=== PATIENT | female | born 1970 | race Caucasian/White ===

== ENCOUNTER 2017-02-07 23:43 | Emergency (ER) | payer OTHER ==
[~2017-02-07] VITALS: Ht 165.1 cm; Wt 61.0 kg
[~2017-02-07 23:43] MED LIST: LEXAPRO10 MG PO; LEXAPRO20 MG PO; LISINOPRIL10 MG PO; LISINOPRIL30 MG PO; LORAZEPAM1 MG PO; MELOXICAM15 MG PO; NAPROSYN500 MG PO; PRILOS; PRILOSEC10 MG PO; PROTONIX40 MG PO; RISPERIDONE0.5 MG PO; TRICOR145 MG PO; VICODIN 5-3001 EACH PO; ZEGERID20 MG PO; ZESTRIL,PRINIVIL5 MG PO
[2017-02-08] MEDS ORDERED: TRAMADOL HCL50 MG PO (02:23)
[2017-02-08 03:11] VITALS: BP 154/88
== END 2017-02-08 03:14 | disposition home or self-care (01) ==
LOC: EME 23:43 → EXP 23:43
DX: M17.0 Bilateral primary osteoarthritis of knee (principal); F17.200 Nicotine dependence, unspecified, uncomplicated
CPT/HCPCS: 99281; 99284

== ENCOUNTER 2017-02-14 07:32 | Observation (INO) | payer OTHER ==
[~2017-02-14] VITALS: Ht 170.2 cm; Wt 60.0 kg
[~2017-02-14 07:32] MED LIST changes: +TRAMADOL HCL50 MG PO
[2017-02-14 08:35] LABS: BASOPHIL COUNT 0.1 K/uL (0-0.1); EOSINOPHIL (%) 1.6 % (0-5); EOSINOPHIL COUNT 0.1 K/uL (0-0.3); HEMATOCRIT 37.8 % (36.0-46.0); IMMATURE GRANULOCYTE (%) 0.5 % (0.0-0.7); INSTRUMENT ABS NEUTROPHIL CT 2.8 K/uL; LYMPHOCYTE COUNT 2.3 K/uL (1.0-2.8); MCV 88.9 FL (83-99); MEAN PLAT.VOLUME 9.2 uM^3 (9.5-12.4); MONOCYTE (%) 8.2 % (3-12); MONOCYTE COUNT 0.5 K/uL (0-0.8); NEUTROPHIL (%) 48.8 % (45-76); NEUTROPHIL COUNT 2.8 K/uL (1.8-6.4); PLATELET COUNT 156 K/uL (156-360); RBC DIS.WIDTH-CV 12.9 % (11.8-14.6); RBC DIS.WIDTH-SD 42.2 % (39-53); RED BLOOD COUNT 4.25 M/uL (3.80-5.20); WHITE BLOOD COUNT 5.7 K/uL (4.1-10.2)
[2017-02-14 08:43] LABS: CHLORIDE 98 mEq/L (99-109); POTASSIUM 3.4 mEq/L (3.7-5.4); SODIUM 133 mEq/L (136-147)
[2017-02-14 08:45] LABS: GLUCOSE 98 mg/dL (70-99)
[2017-02-14 08:46] LABS: ANION GAP 17 MEQ/L (2-14)
[2017-02-14 08:49] LABS: GFR ESTIMATE (CALCULATED) > 59 mL/min/; UREA NITROGEN (BUN) 6 mg/dL (9-23)
[2017-02-14 09:09] LABS: SERUM ETHYL ALCOHOL 237 mg/dL
[2017-02-14 09:20] LABS: TROP-I INTERPRETATION NEGATIVE; TROPONIN-I < 0.01 ng/mL (0.0-0.30)
[2017-02-14] MEDS ORDERED: TRICOR145 MG PO (12:28)
[2017-02-14] MEDS ORDERED: VENTOLIN HFA18 GM IH (12:29)
[2017-02-14] MEDS ORDERED: LISINOPRIL20 MG PO (12:29)
[2017-02-14] MEDS ORDERED: PRILOSEC10 MG PO (12:29)
[2017-02-14] MEDS ORDERED: LEXAPRO20 MG PO (12:29)
[2017-02-14] MEDS ORDERED: TRAMADOL HCL50 MG PO (12:30)
[2017-02-14 17:53] VITALS: BP 156/96
[2017-02-15 00:57] VITALS: BP 161/77
[2017-02-15 07:47] VITALS: BP 134/81
[2017-02-15 11:01] VITALS: BP 164/78
[2017-02-15] MEDS ORDERED: CEFTIN500 MG PO (14:10)
[2017-02-15] MEDS ORDERED: DELTASONE20 M1 PO (14:11)
== END 2017-02-15 14:39 | disposition home or self-care (01) ==
LOC: EME → EDBD 07:32 → EDOF 14:16 → 5EAST 14:16 → EDOF 14:16 → 5EAST 17:22
PROVIDERS: Emergency Medicine
DX: J44.1 Chronic obstructive pulmonary disease with (acute) exacerbation (principal); F17.200 Nicotine dependence, unspecified, uncomplicated; I10 Essential (primary) hypertension; E78.5 Hyperlipidemia, unspecified; F41.9 Anxiety disorder, unspecified; F32.9 Major depressive disorder, single episode, unspecified; Z88.5 Allergy status to narcotic agent; E87.1 Hypo-osmolality and hyponatremia; E87.6 Hypokalemia; F10.220 Alcohol dependence with intoxication, uncomplicated; Y90.7 Blood alcohol level of 200-239 mg/100 ml; K21.9 Gastro-esophageal reflux disease without esophagitis
CPT/HCPCS: 71010; 80048; 84484; 85025; 87070; 87205; 93005; 94640; 94640 76; 94799; 99202; 99281; 99285; G0378; G0480; J0696; J1100; J1650; J2060; J2930; J7030; J7050; J7644

== ENCOUNTER 2017-02-25 05:55 | Emergency (ER) | payer OTHER ==
[~2017-02-25] VITALS: Ht 165.1 cm; Wt 60.1 kg
[~2017-02-25 05:55] MED LIST changes: +CEFTIN500 MG PO; +DELTASONE20 M1 PO; +LISINOPRIL20 MG PO; +VENTOLIN HFA18 GM IH
[2017-02-25 06:21] LABS: EOSINOPHIL (%) 1.2 % (0-5); EOSINOPHIL COUNT 0.1 K/uL (0-0.3); HEMATOCRIT 38.4 % (36.0-46.0); IMMATURE GRANULOCYTE (%) 0.4 % (0.0-0.7); INSTRUMENT ABS NEUTROPHIL CT 2.6 K/uL; LYMPHOCYTE COUNT 3.2 K/uL (1.0-2.8); MCH 31.5 PG (29.0-34.0); MCHC 35.2 G/DL (30.0-36.0); MCV 89.7 FL (83-99); MEAN PLAT.VOLUME 9.2 uM^3 (9.5-12.4); MONOCYTE (%) 13.7 % (3-12); MONOCYTE COUNT 0.9 K/uL (0-0.8); NEUTROPHIL (%) 37.9 % (45-76); NEUTROPHIL COUNT 2.6 K/uL (1.8-6.4); RBC DIS.WIDTH-CV 13.7 % (11.8-14.6); RBC DIS.WIDTH-SD 45.4 % (39-53); RED BLOOD COUNT 4.28 M/uL (3.80-5.20); WHITE BLOOD COUNT 6.9 K/uL (4.1-10.2)
[2017-02-25 06:23] LABS: CHLORIDE 99 mEq/L (99-109); PLATELET COUNT 210 K/uL (156-360); POTASSIUM 3.9 mEq/L (3.7-5.4)
[2017-02-25 06:24] LABS: SODIUM 133 mEq/L (136-147)
[2017-02-25 06:27] LABS: ANION GAP 15 MEQ/L (2-14)
[2017-02-25 06:29] LABS: GFR ESTIMATE (CALCULATED) > 59 mL/min/
[2017-02-25 06:30] LABS: UREA NITROGEN (BUN) 5 mg/dL (9-23)
[2017-02-25 06:36] LABS: TROP-I INTERPRETATION NEGATIVE; TROPONIN-I < 0.01 ng/mL (0.0-0.30)
[2017-02-25] MEDS ORDERED: PROAIR HFA8.5 GM IH (06:48)
[2017-02-25] MEDS ORDERED: XANAX0.25 MG PO (06:48)
[2017-02-25 06:52] VITALS: BP 100/62
[2017-02-25 06:58] LABS: GLUCOSE 82 mg/dL (70-99)
== END 2017-02-25 06:58 | disposition home or self-care (01) ==
LOC: EME → EDBD 05:55 → EME 05:55
PROVIDERS: Emergency Medicine
DX: J44.9 Chronic obstructive pulmonary disease, unspecified (principal); F41.0 Panic disorder [episodic paroxysmal anxiety]; F17.200 Nicotine dependence, unspecified, uncomplicated; I10 Essential (primary) hypertension; E78.5 Hyperlipidemia, unspecified; K21.9 Gastro-esophageal reflux disease without esophagitis; Z88.6 Allergy status to analgesic agent
CPT/HCPCS: 71010; 80048; 84484; 85025; 93005; 99281; 99285; J1100; J2060; J7644

== ENCOUNTER 2017-02-26 15:20 | Emergency (ER) | payer OTHER ==
[~2017-02-26] VITALS: Ht 165.1 cm; Wt 62.5 kg
[~2017-02-26 15:20] MED LIST changes: +PROAIR HFA8.5 GM IH; +XANAX0.25 MG PO
[2017-02-26 15:55] LABS: EOSINOPHIL (%) 0 % (0-5); HEMATOCRIT 38.1 % (36.0-46.0); IMMATURE GRANULOCYTE (%) 1.4 % (0.0-0.7); IMMATURE GRANULOCYTE COUNT 0.2 K/uL; INSTRUMENT ABS NEUTROPHIL CT 13.5 K/uL; LYMPHOCYTE COUNT 0.5 K/uL (1.0-2.8); MCH 32.2 PG (29.0-34.0); MCHC 35.7 G/DL (30.0-36.0); MCV 90.1 FL (83-99); MONOCYTE (%) 1.6 % (3-12); MONOCYTE COUNT 0.2 K/uL (0-0.8); NEUTROPHIL (%) 93.8 % (45-76); NEUTROPHIL COUNT 13.5 K/uL (1.8-6.4); PLATELET COUNT 237 K/uL (156-360); RBC DIS.WIDTH-SD 46.1 % (39-53); RED BLOOD COUNT 4.23 M/uL (3.80-5.20); WHITE BLOOD COUNT 14.4 K/uL (4.1-10.2)
[2017-02-26 16:07] LABS: CHLORIDE 98 mEq/L (99-109); POTASSIUM 3.9 mEq/L (3.7-5.4); SODIUM 132 mEq/L (136-147)
[2017-02-26 16:08] LABS: BASE EXCESS -4.9 mEq/L (-3 to +3); BICARBONATE 17.9 mEq/L (22-26); CARBOXY HGB 5.4 % (0-5); METHEMOGLOBIN 1.3 % (0-1.5); PCO2 27 mm Hg (35-45); PO2 154 mm Hg (80-100); pH 7.43 (7.35-7.45)
[2017-02-26 16:09] LABS: COMMENTS - BLOOD GASES AC+; CONTINUOUS POS AIRWAY PRESSURE 5 cm H2O; DEVICE 980 VENTILATOR; FI02 30 %; MODE NIPPV; PRES. SUPPORT 5 CM/H2O; SITE LR; TOTAL RESP RATE 16 resp/min
[2017-02-26 16:10] LABS: GLUCOSE 111 mg/dL (70-99)
[2017-02-26 16:11] LABS: ANION GAP 20 MEQ/L (2-14)
[2017-02-26 16:13] LABS: GFR ESTIMATE (CALCULATED) > 59 mL/min/
[2017-02-26 16:14] LABS: UREA NITROGEN (BUN) 4 mg/dL (9-23)
[2017-02-26 16:18] LABS: TROP-I INTERPRETATION NEGATIVE; TROPONIN-I < 0.01 ng/mL (0.0-0.30)
[2017-02-26 19:12] VITALS: BP 98/48
== END 2017-02-26 19:14 | disposition home or self-care (01) ==
LOC: EME 15:20
PROVIDERS: Emergency Medicine
DX: J45.901 Unspecified asthma with (acute) exacerbation (principal); F41.9 Anxiety disorder, unspecified; J44.9 Chronic obstructive pulmonary disease, unspecified; I10 Essential (primary) hypertension; E78.5 Hyperlipidemia, unspecified; F17.200 Nicotine dependence, unspecified, uncomplicated
CPT/HCPCS: 36600; 71010; 80048; 82803; 84484; 85025; 94002; 94640; 99281; 99285; J2060; J2930; J3475; J7644

== ENCOUNTER 2017-02-28 14:49 | Emergency (ER) | payer SELFPAY ==
[~2017-02-28] VITALS: Ht 165.1 cm; Wt 62.0 kg
[2017-02-28] MEDS ORDERED: ATIVAN0.5 MG PO ×2 (18:56→18:58)
[2017-02-28 19:00] VITALS: BP 155/87
== END 2017-02-28 19:21 | disposition home or self-care (01) ==
LOC: EME 14:49
DX: F41.9 Anxiety disorder, unspecified (principal); J45.901 Unspecified asthma with (acute) exacerbation; E78.5 Hyperlipidemia, unspecified; I10 Essential (primary) hypertension; K21.9 Gastro-esophageal reflux disease without esophagitis; F17.200 Nicotine dependence, unspecified, uncomplicated
CPT/HCPCS: 71010; 94640; 99281; 99285; J2060; J2930

== ENCOUNTER 2017-04-11 15:02 | Emergency (ER) | payer OTHER ==
[~2017-04-11] VITALS: Ht 165.1 cm; Wt 59.6 kg
[~2017-04-11 15:02] MED LIST changes: +ATIVAN0.5 MG PO
[2017-04-11] MEDS ORDERED: XANAX0.5 MG PO (16:44)
[2017-04-11 16:59] VITALS: BP 151/98
== END 2017-04-11 17:00 | disposition home or self-care (01) ==
LOC: EME 15:02
DX: F41.9 Anxiety disorder, unspecified (principal); I10 Essential (primary) hypertension; E78.5 Hyperlipidemia, unspecified; F17.200 Nicotine dependence, unspecified, uncomplicated
CPT/HCPCS: 99281; 99284

== ENCOUNTER 2017-06-15 01:39 | Emergency (ER) | payer OTHER ==
[~2017-06-15] VITALS: Ht 165.1 cm; Wt 61.5 kg
[~2017-06-15 01:39] MED LIST changes: +PROVENTIL HFA6.7 GM IH; +XANAX0.5 MG PO
[2017-06-15 01:50] VITALS: BP 129/78
[2017-06-16] MEDS ORDERED: FLOVENT 44120 INHALA IH (03:31)
[2017-06-16] MEDS ORDERED: PROVENTIL,2.5 MG/3 M IH (03:31)
[2017-06-16] MEDS ORDERED: AERONEB GO NEB1 EACH MC (03:31)
[2017-06-16] MEDS ORDERED: XANAX0.25 MG PO (03:32)
== END 2017-06-15 02:05 | disposition left against medical advice (07) ==
LOC: EME → EDBD 01:39 → EME 02:05
DX: R06.02 Shortness of breath (principal); Z53.21 Procedure and treatment not carried out due to patient leaving prior to being seen by health care provider
CPT/HCPCS: 99281; 99284; J0171; J1100; J7644

== ENCOUNTER 2017-06-16 01:39 | Emergency (ER) | payer OTHER ==
[~2017-06-16] VITALS: Ht 165.1 cm; Wt 64.0 kg
[2017-06-16 02:54] LABS: HEMATOCRIT 38.7 % (36.0-46.0); MCH 33.7 PG (29.0-34.0); MCHC 36.2 G/DL (30.0-36.0); MCV 93.3 FL (83-99); MEAN PLAT.VOLUME 8.7 uM^3 (9.5-12.4); PLATELET COUNT 199 K/uL (156-360); RBC DIS.WIDTH-CV 13.2 % (11.8-14.6); RBC DIS.WIDTH-SD 45.3 % (39-53); RED BLOOD COUNT 4.15 M/uL (3.80-5.20); WHITE BLOOD COUNT 9.4 K/uL (4.1-10.2)
[2017-06-16 03:02] LABS: CHLORIDE 96 mEq/L (99-109); POTASSIUM 3.6 mEq/L (3.7-5.4); SODIUM 128 mEq/L (136-147)
[2017-06-16 03:04] LABS: GLUCOSE 108 mg/dL (70-99)
[2017-06-16 03:05] LABS: ANION GAP 12 MEQ/L (2-14)
[2017-06-16 03:08] LABS: GFR ESTIMATE (CALCULATED) > 59 mL/min/
[2017-06-16 03:09] LABS: UREA NITROGEN (BUN) 6 mg/dL (9-23)
[2017-06-16 03:16] LABS: QUANTITATIVE HCG < 4.0 MIU/ML
[2017-06-16] MEDS ORDERED: PROVENTIL,2.5 MG/3 M IH (03:31)
[2017-06-16] MEDS ORDERED: FLOVENT 44120 INHALA IH (03:31)
[2017-06-16] MEDS ORDERED: AERONEB GO NEB1 EACH MC (03:31)
[2017-06-16] MEDS ORDERED: XANAX0.25 MG PO (03:32)
[2017-06-16 04:03] VITALS: BP 128/93
[2017-06-17] MEDS ORDERED: PROVENTIL HFA6.7 GM IH (16:50)
[2017-06-17] MEDS ORDERED: ZITHROMAX Z-PA250 MG PO (16:50)
[2017-06-17] MEDS ORDERED: PREDNISONE20 MG PO (16:50)
== END 2017-06-16 04:04 | disposition home or self-care (01) ==
LOC: EME 01:39
PROVIDERS: Physician Assistant
DX: J44.1 Chronic obstructive pulmonary disease with (acute) exacerbation (principal); F41.9 Anxiety disorder, unspecified; F17.200 Nicotine dependence, unspecified, uncomplicated; E78.5 Hyperlipidemia, unspecified; I10 Essential (primary) hypertension; K21.9 Gastro-esophageal reflux disease without esophagitis; Z88.6 Allergy status to analgesic agent
CPT/HCPCS: 71020; 80048; 84702; 85027; 94640; 99281; 99285; J2930; J7030

== ENCOUNTER 2017-06-17 14:42 | Emergency (ER) | payer OTHER ==
[~2017-06-17] VITALS: Ht 165.1 cm; Wt 64.0 kg
[~2017-06-17 14:42] MED LIST changes: +AERONEB GO NEB1 EACH MC; +FLOVENT 44120 INHALA IH; +PROVENTIL,2.5 MG/3 M IH
[2017-06-17 16:03] LABS: HEMATOCRIT 34.9 % (36.0-46.0); MCH 33.5 PG (29.0-34.0); MCV 95.9 FL (83-99); MEAN PLAT.VOLUME 8.9 uM^3 (9.5-12.4); PLATELET COUNT 169 K/uL (156-360); RBC DIS.WIDTH-CV 13.8 % (11.8-14.6); RED BLOOD COUNT 3.64 M/uL (3.80-5.20); WHITE BLOOD COUNT 11.2 K/uL (4.1-10.2)
[2017-06-17 16:06] LABS: CARBON DIOXIDE (BICARBONATE) 21.3 MEQ/L (20-31)
[2017-06-17 16:12] LABS: CHLORIDE 101 mEq/L (99-109); POTASSIUM 3.6 mEq/L (3.7-5.4); SODIUM 132 mEq/L (136-147)
[2017-06-17 16:14] LABS: GLUCOSE 93 mg/dL (70-99)
[2017-06-17 16:15] LABS: ANION GAP 13 MEQ/L (2-14)
[2017-06-17 16:18] LABS: GFR ESTIMATE (CALCULATED) > 59 mL/min/; UREA NITROGEN (BUN) 8 mg/dL (9-23)
[2017-06-17 16:24] LABS: TROP-I INTERPRETATION NEGATIVE; TROPONIN-I < 0.01 ng/mL (0.0-0.30)
[2017-06-17] MEDS ORDERED: PROVENTIL HFA6.7 GM IH (16:50)
[2017-06-17] MEDS ORDERED: ZITHROMAX Z-PA250 MG PO (16:50)
[2017-06-17] MEDS ORDERED: PREDNISONE20 MG PO (16:50)
[2017-06-17 17:04] VITALS: BP 97/69
== END 2017-06-17 17:07 | disposition home or self-care (01) ==
LOC: EME 14:42
PROVIDERS: Emergency Medicine
DX: J44.9 Chronic obstructive pulmonary disease, unspecified (principal); K21.9 Gastro-esophageal reflux disease without esophagitis; I10 Essential (primary) hypertension; E78.5 Hyperlipidemia, unspecified; F41.9 Anxiety disorder, unspecified; Z88.5 Allergy status to narcotic agent; F17.200 Nicotine dependence, unspecified, uncomplicated
CPT/HCPCS: 71010; 80048; 82803; 83605; 83880; 84484; 85027; 87040; 93005; 94640; 99281; 99284; J1100

== ENCOUNTER 2017-06-24 08:56 | Inpatient (IN) | payer OTHER ==
[~2017-06-24] VITALS: Ht 165.1 cm; Wt 63.7 kg
[~2017-06-24 08:56] MED LIST changes: -LISINOPRIL20 MG PO; +LISINOPRIL40 MG PO; +PREDNISONE20 MG PO; +ZITHROMAX Z-PA250 MG PO
[2017-06-24 09:52] LABS: EOSINOPHIL (%) 0.1 % (0-5); HEMATOCRIT 33.2 % (36.0-46.0); IMMATURE GRANULOCYTE (%) 1.8 % (0.0-0.7); IMMATURE GRANULOCYTE COUNT 0.2 K/uL; INSTRUMENT ABS NEUTROPHIL CT 8.3 K/uL; LYMPHOCYTE COUNT 0.4 K/uL (1.0-2.8); MCH 33.3 PG (29.0-34.0); MCHC 35.5 G/DL (30.0-36.0); MCV 93.8 FL (83-99); MEAN PLAT.VOLUME 8.4 uM^3 (9.5-12.4); NEUTROPHIL COUNT 8.3 K/uL (1.8-6.4); PLATELET COUNT 211 K/uL (156-360); RBC DIS.WIDTH-CV 13.1 % (11.8-14.6); RBC DIS.WIDTH-SD 45.1 % (39-53); RED BLOOD COUNT 3.54 M/uL (3.80-5.20); WHITE BLOOD COUNT 9.9 K/uL (4.1-10.2)
[2017-06-24 10:27] LABS: CHLORIDE 95 mEq/L (99-109); POTASSIUM 4.2 mEq/L (3.7-5.4)
[2017-06-24 10:29] LABS: GLUCOSE 99 mg/dL (70-99)
[2017-06-24 10:31] LABS: ANION GAP 11 MEQ/L (2-14)
[2017-06-24 10:33] LABS: GFR ESTIMATE (CALCULATED) > 59 mL/min/
[2017-06-24 10:34] LABS: UREA NITROGEN (BUN) 13 mg/dL (9-23)
[2017-06-24 10:38] LABS: SODIUM 125 mEq/L (136-147)
[2017-06-24] MEDS ORDERED: LISINOPRIL40 MG PO (13:06)
[2017-06-24] MEDS ORDERED: GABAPENTIN300 MG PO (13:08)
[2017-06-24] MEDS ORDERED: BUSPAR10 MG PO (13:09)
[2017-06-24 13:10] VITALS: BP 119/58
[2017-06-24] MEDS ORDERED: PROVENTIL,2.5 MG/3 M IH (13:13)
[2017-06-24] MEDS ORDERED: ALBUTEROL2.5 MG/3 M IH (13:14)
[2017-06-24] MEDS ORDERED: PROVENTIL HFA6.7 GM IH (13:15)
[2017-06-24] MEDS ORDERED: VITAMIN C250 MG PO (13:15)
[2017-06-24 16:05] VITALS: BP 137/68
[2017-06-24 20:23] VITALS: BP 155/82
[2017-06-24 23:37] VITALS: BP 167/84
[2017-06-25 07:08] LABS: HEMATOCRIT 34.7 % (36.0-46.0); MCH 33.1 PG (29.0-34.0); MCHC 34.6 G/DL (30.0-36.0); MCV 95.9 FL (83-99); PLATELET COUNT 269 K/uL (156-360); RBC DIS.WIDTH-CV 13.5 % (11.8-14.6); RBC DIS.WIDTH-SD 47.8 % (39-53); RED BLOOD COUNT 3.62 M/uL (3.80-5.20)
[2017-06-25 07:38] LABS: ANION GAP 12 MEQ/L (2-14); CHLORIDE 97 MEQ/L (99-109); GFR ESTIMATE (CALCULATED) > 59 mL/min/; GLUCOSE 100 mg/dL (70-99); POTASSIUM 4.2 MEQ/L (3.7-5.4); SAMPLE HEMOLYSIS CHECK 0; SAMPLE ICTERIC CHECK 0; SAMPLE LIPEMIA CHECK 0; SODIUM 130 MEQ/L (136-147); UREA NITROGEN (BUN) 11 mg/dL (9-23)
[2017-06-25] MEDS ORDERED: DUONEB 2.5-0.5 M3 ML AEROSOL (08:51)
[2017-06-25] MEDS ORDERED: LEVAQUIN750 MG PO (08:53)
[2017-06-25] MEDS ORDERED: NICOTINE PATCH1 EAC2 TD (08:54)
[2017-06-25] MEDS ORDERED: PREDNISONE10 MG PO (08:55)
[2017-06-25] MEDS ORDERED: AERONEB GO NEB1 EACH MC (08:55)
== END 2017-06-25 09:25 | disposition home or self-care (01) | DRG 190 ==
LOC: EME → EDBD 08:56 → EME 08:56 → 2EAST 11:33 → EDOF 11:33 → ENRESERV 11:35 → EDOF 11:51 → ENRESERV 12:02 → 2EAST 13:05
PROVIDERS: Emergency Medicine; Internal Medicine
DX: J44.1 Chronic obstructive pulmonary disease with (acute) exacerbation (principal); J96.01 Acute respiratory failure with hypoxia; E87.1 Hypo-osmolality and hyponatremia; I10 Essential (primary) hypertension; E78.5 Hyperlipidemia, unspecified; F41.9 Anxiety disorder, unspecified; F32.9 Major depressive disorder, single episode, unspecified; K21.9 Gastro-esophageal reflux disease without esophagitis; G89.29 Other chronic pain; F17.210 Nicotine dependence, cigarettes, uncomplicated
CPT/HCPCS: 71020; 80048; 83930; 83935; 84295; 84300; 85025; 85027; 94640; 94640 76; 94799; 99202; 99281; 99285; J1100; J1644; J1956; J2930; J7030; J7644

== ENCOUNTER 2017-07-08 00:43 | Emergency (ER) | payer BC ==
[~2017-07-08] VITALS: Ht 165.1 cm; Wt 62.3 kg
[~2017-07-08 00:43] MED LIST changes: +ALBUTEROL2.5 MG/3 M IH; +BUSPAR10 MG PO; +DUONEB 2.5-0.5 M3 ML AEROSOL; +GABAPENTIN300 MG PO; +LEVAQUIN750 MG PO; +NICOTINE PATCH1 EAC2 TD; +PREDNISONE10 MG PO; +VITAMIN C250 MG PO
[2017-07-08 01:18] LABS: EOSINOPHIL (%) 0 % (0-5); HEMATOCRIT 35.1 % (36.0-46.0); IMMATURE GRANULOCYTE (%) 2.2 % (0.0-0.7); IMMATURE GRANULOCYTE COUNT 0.2 K/uL; MCH 33.9 PG (29.0-34.0); MCHC 35.6 G/DL (30.0-36.0); MCV 95.1 FL (83-99); MEAN PLAT.VOLUME 8.3 uM^3 (9.5-12.4); MONOCYTE (%) 4.9 % (3-12); MONOCYTE COUNT 0.5 K/uL (0-0.8); PLATELET COUNT 262 K/uL (156-360); RBC DIS.WIDTH-CV 13.5 % (11.8-14.6); RBC DIS.WIDTH-SD 47.4 % (39-53); RED BLOOD COUNT 3.69 M/uL (3.80-5.20); WHITE BLOOD COUNT 9.7 K/uL (4.1-10.2)
[2017-07-08 01:27] LABS: CHLORIDE 101 mEq/L (99-109); POTASSIUM 4.1 mEq/L (3.7-5.4); SODIUM 132 mEq/L (136-147)
[2017-07-08 01:28] LABS: GLUCOSE 91 mg/dL (70-99)
[2017-07-08 01:30] LABS: ANION GAP 14 MEQ/L (2-14)
[2017-07-08 01:32] LABS: GFR ESTIMATE (CALCULATED) > 59 mL/min/
[2017-07-08 01:33] LABS: UREA NITROGEN (BUN) 4 mg/dL (9-23)
[2017-07-08 01:39] LABS: TROP-I INTERPRETATION NEGATIVE; TROPONIN-I < 0.01 ng/mL (0.0-0.30)
[2017-07-08 03:49] VITALS: BP 133/76
== END 2017-07-08 03:50 | disposition home or self-care (01) ==
LOC: EME 00:43
PROVIDERS: Emergency Medicine
DX: J44.9 Chronic obstructive pulmonary disease, unspecified (principal); F41.9 Anxiety disorder, unspecified; R06.4 Hyperventilation; F17.210 Nicotine dependence, cigarettes, uncomplicated; I10 Essential (primary) hypertension; F32.9 Major depressive disorder, single episode, unspecified; Z88.5 Allergy status to narcotic agent
CPT/HCPCS: 71020; 80048; 84484; 85025; 93005; 94640; 99281; 99285; J1100; J2060; J7644

== ENCOUNTER → 2017-07-22 | Outpatient (CLI) | payer OTHER ==
[~2017-07-22] VITALS: Ht 165.1 cm; Wt 64.9 kg
[~2017-07-22] MED LIST changes: +MOTRIN600 MG PO
== END | disposition home or self-care (01) ==
LOC: RES 13:00
DX: Z02.71 Encounter for disability determination (principal)
CPT/HCPCS: 94060; 94729; 94760

== ENCOUNTER 2017-07-28 21:33 | Emergency (ER) | payer OTHER ==
[~2017-07-28] VITALS: Ht 162.6 cm; Wt 68.4 kg
[~2017-07-28 21:33] MED LIST changes: -MOTRIN600 MG PO
[2017-07-28 21:54] LABS: EOSINOPHIL (%) 0.6 % (0-5); EOSINOPHIL COUNT 0.1 K/uL (0-0.3); HEMATOCRIT 36.6 % (36.0-46.0); IMMATURE GRANULOCYTE (%) 0.9 % (0.0-0.7); IMMATURE GRANULOCYTE COUNT 0.1 K/uL; INSTRUMENT ABS NEUTROPHIL CT 5.7 K/uL; LYMPHOCYTE COUNT 3.3 K/uL (1.0-2.8); MCH 33.9 PG (29.0-34.0); MCHC 35.8 G/DL (30.0-36.0); MCV 94.6 FL (83-99); MEAN PLAT.VOLUME 8.8 uM^3 (9.5-12.4); MONOCYTE (%) 7.6 % (3-12); MONOCYTE COUNT 0.8 K/uL (0-0.8); NEUTROPHIL (%) 57.1 % (45-76); NEUTROPHIL COUNT 5.7 K/uL (1.8-6.4); PLATELET COUNT 286 K/uL (156-360); RED BLOOD COUNT 3.87 M/uL (3.80-5.20); WHITE BLOOD COUNT 9.9 K/uL (4.1-10.2)
[2017-07-28 22:02] LABS: CHLORIDE 95 mEq/L (99-109); POTASSIUM 3.7 mEq/L (3.7-5.4); SODIUM 120 mEq/L (136-147)
[2017-07-28 22:03] LABS: MAGNESIUM 1.5 mg/dL (1.3-2.7)
[2017-07-28 22:04] LABS: GLUCOSE 79 mg/dL (70-99)
[2017-07-28 22:08] LABS: GFR ESTIMATE (CALCULATED) > 59 mL/min/
[2017-07-28 22:09] LABS: ANION GAP 12 MEQ/L (2-14); INTER. NORMALIZED RATIO 0.8; UREA NITROGEN (BUN) 4 mg/dL (9-23)
[2017-07-28 22:12] LABS: PTT 29.9 SEC (25-37)
[2017-07-28 22:15] LABS: TROP-I INTERPRETATION NEGATIVE; TROPONIN-I < 0.01 ng/mL (0.0-0.30)
[2017-07-28 22:21] LABS: PROTHROMBIN TIME 9.4 SEC (10.2-12.9)
[2017-07-28] MEDS ORDERED: MOTRIN600 MG PO (22:46)
[2017-07-28 23:18] VITALS: BP 121/65
== END 2017-07-28 23:20 | disposition home or self-care (01) ==
LOC: EME → EDBD 21:33 → EME 21:33
PROVIDERS: Emergency Medicine
DX: R06.00 Dyspnea, unspecified (principal); E87.1 Hypo-osmolality and hyponatremia; I10 Essential (primary) hypertension; J44.9 Chronic obstructive pulmonary disease, unspecified; F41.9 Anxiety disorder, unspecified; F32.9 Major depressive disorder, single episode, unspecified; F17.200 Nicotine dependence, unspecified, uncomplicated; Z88.5 Allergy status to narcotic agent
CPT/HCPCS: 36600; 71010; 80048; 82803; 83735; 84484; 85025; 85610; 85730; 93005; 94002; 99281; 99285; J1100; J7644

== ENCOUNTER 2017-09-14 02:17 | Emergency (ER) | payer OTHER ==
[~2017-09-14] VITALS: Ht 165.1 cm; Wt 72.7 kg
[~2017-09-14 02:17] MED LIST changes: +MOTRIN600 MG PO
[2017-09-14 03:02] LABS: HEMATOCRIT 34.4 % (36.0-46.0); HEMOGLOBIN 12.4 G/DL (11.9-15.5); MCH 34.3 PG (29.0-34.0); PLATELET COUNT 236 K/uL (156-360); RBC DIS.WIDTH-SD 41.7 % (39-53); RED BLOOD COUNT 3.62 M/uL (3.80-5.20)
[2017-09-14 03:16] LABS: CHLORIDE 100 mEq/L (99-109); POTASSIUM 3.6 mEq/L (3.7-5.4); SODIUM 134 mEq/L (136-147)
[2017-09-14 03:18] LABS: GLUCOSE 96 mg/dL (70-99)
[2017-09-14 03:21] LABS: SERUM ETHYL ALCOHOL 249 mg/dL
[2017-09-14 03:22] LABS: AMPHETAMINE NEGATIVE (500 ng/mL); BARBITURATES NEGATIVE (200 ng/mL); BENZODIAZEPINES NEGATIVE (150 ng/mL); BUPRENORPHINE NEGATIVE (10 ng/mL); COCAINE NEGATIVE (150 ng/mL); METHADONE NEGATIVE (200 ng/mL); METHAMPHETAMINE NEGATIVE (500 ng/mL); OPIATES (MORPHINE) NEGATIVE (100 ng/mL); OXYCODONE NEGATIVE (100 ng/mL); PHENCYCLIDINE NEGATIVE (25 ng/mL); PROPOXYPHENE NEGATIVE (300 ng/mL); THC CANNABINOIDS NEGATIVE (50 ng/mL); TRICYCLIC ANTIDEPRESSANTS NEGATIVE (300 ng/mL)
[2017-09-14 03:22] LABS: CREATININE 0.6 mg/dL (0.6-1.3); GFR ESTIMATE (CALCULATED) > 59 mL/min/
[2017-09-14 03:23] LABS: UREA NITROGEN (BUN) 5 mg/dL (9-23)
[2017-09-14 03:25] LABS: ACETAMINOPHEN (TYLENOL) < 10 mcg/mL (10-30); SALICYLATE < 5.0 MG/DL (15-30)
[2017-09-14 14:10] VITALS: BP 147/79
== END 2017-09-14 14:11 | disposition home or self-care (01) ==
LOC: EME 02:17
PROVIDERS: Emergency Medicine Emergency Medical Services
DX: F32.9 Major depressive disorder, single episode, unspecified (principal); F10.129 Alcohol abuse with intoxication, unspecified; T46.4X1A Poisoning by angiotensin-converting-enzyme inhibitors, accidental (unintentional), initial encounter; R45.851 Suicidal ideations; I95.9 Hypotension, unspecified; I45.81 Long QT syndrome; Z04.6 Encounter for general psychiatric examination, requested by authority; I10 Essential (primary) hypertension; J44.9 Chronic obstructive pulmonary disease, unspecified; F41.9 Anxiety disorder, unspecified; F17.200 Nicotine dependence, unspecified, uncomplicated; Z88.5 Allergy status to narcotic agent
CPT/HCPCS: 80048; 85027; 90837; 93005; 99281; 99285; G0480; J7040

== ENCOUNTER 2017-09-16 18:54 | Emergency (ER) | payer SELFPAY ==
[~2017-09-16] VITALS: Ht 165.1 cm; Wt 68.4 kg
[2017-09-16] MEDS ORDERED: NAPROXEN500 MG PO (20:54)
[2017-09-16 21:06] VITALS: BP 154/83
== END 2017-09-16 21:07 | disposition home or self-care (01) ==
LOC: EME 18:54
DX: I82.612 Acute embolism and thrombosis of superficial veins of left upper extremity (principal); J44.9 Chronic obstructive pulmonary disease, unspecified; I10 Essential (primary) hypertension; F32.9 Major depressive disorder, single episode, unspecified; F41.9 Anxiety disorder, unspecified; F17.200 Nicotine dependence, unspecified, uncomplicated; Z88.5 Allergy status to narcotic agent
CPT/HCPCS: 93971; 99281; 99284

== ENCOUNTER 2017-10-05 16:47 | Emergency (ER) | payer BC ==
[~2017-10-05] VITALS: Ht 165.1 cm; Wt 68.9 kg
[~2017-10-05 16:47] MED LIST changes: +NAPROXEN500 MG PO
[2017-10-05] MEDS ORDERED: TENORMIN25 MG PO (17:27)
[2017-10-05] MEDS ORDERED: EFFEXOR XR150 MG PO (17:29)
[2017-10-05] MEDS ORDERED: APRESOLINE25 MG PO (17:31)
[2017-10-05] MEDS ORDERED: ADVAIR 250/501 DISK IH (17:32)
[2017-10-05] MEDS ORDERED: TRAMADOL HCL E100 M1 PO (17:35)
[2017-10-05 17:54] LABS: HEMATOCRIT 38.5 % (36.0-46.0); HEMOGLOBIN 13.7 G/DL (11.9-15.5); MCH 33.6 PG (29.0-34.0); MCHC 35.6 G/DL (30.0-36.0); MCV 94.4 FL (83-99); PLATELET COUNT 240 K/uL (156-360); RBC DIS.WIDTH-CV 12.4 % (11.8-14.6); RBC DIS.WIDTH-SD 42.9 % (39-53); RED BLOOD COUNT 4.08 M/uL (3.80-5.20); WHITE BLOOD COUNT 9.6 K/uL (4.1-10.2)
[2017-10-05 18:01] LABS: APPEARANCE CLEAR ((CLEAR)); BILIRUBIN NEGATIVE; BLOOD NEGATIVE; COLOR STRAW ((YELLOW)); GLUCOSE (STRIP) NEGATIVE; KETONES NEGATIVE; LEUKOCYTES NEGATIVE; NITRITE NEGATIVE; PROTEIN (STRIP) NEGATIVE; SPECIFIC GRAVITY 1.002 (1.000-1.030); UROBILINOGEN 0.2 MG/DL (0.2-1.0)
[2017-10-05 18:02] LABS: ALBUMIN 3.8 g/dL (3.2-4.8); CHLORIDE 105 mEq/L (99-109); POTASSIUM 3.4 mEq/L (3.7-5.4); SODIUM 136 mEq/L (136-147)
[2017-10-05 18:05] LABS: GLUCOSE 89 mg/dL (70-99); TOTAL PROTEIN 6.2 g/dL (6.4-8.3)
[2017-10-05 18:07] LABS: TOTAL BILIRUBIN 0.2 mg/dL (0.0-1.0)
[2017-10-05 18:08] LABS: ALKALINE PHOSPHATASE 64 IU/L (3-129); SERUM ETHYL ALCOHOL 79 mg/dL
[2017-10-05 18:09] LABS: CREATININE 0.6 mg/dL (0.6-1.3); GFR ESTIMATE (CALCULATED) > 59 mL/min/
[2017-10-05 18:10] LABS: AST (GOT) 14 IU/L (2-34); UREA NITROGEN (BUN) 2 mg/dL (9-23)
[2017-10-05 18:11] LABS: ALT (GPT) 11 IU/L (3-49)
[2017-10-05 18:12] LABS: LIPASE 35 U/L (1.0-51.0)
[2017-10-05] MEDS ORDERED: LEVSIN-SL0.125 MG SL (18:22)
[2017-10-05] MEDS ORDERED: MIRALAX119 GM PO (18:22)
[2017-10-05] MEDS ORDERED: GAS-X125 M1 PO (18:22)
[2017-10-05 18:38] VITALS: BP 142/91
== END 2017-10-05 18:41 | disposition home or self-care (01) ==
LOC: EME 16:47
PROVIDERS: Nurse Practitioner Family
DX: K52.9 Noninfective gastroenteritis and colitis, unspecified (principal); F10.129 Alcohol abuse with intoxication, unspecified; Y90.3 Blood alcohol level of 60-79 mg/100 ml; F17.210 Nicotine dependence, cigarettes, uncomplicated; G89.29 Other chronic pain; J44.9 Chronic obstructive pulmonary disease, unspecified; I10 Essential (primary) hypertension; M19.90 Unspecified osteoarthritis, unspecified site; F32.9 Major depressive disorder, single episode, unspecified; F41.9 Anxiety disorder, unspecified; F41.0 Panic disorder [episodic paroxysmal anxiety]; Z88.5 Allergy status to narcotic agent
CPT/HCPCS: 74022; 80053; 81003; 83690; 85027; 99281; 99285; G0480

== ENCOUNTER 2017-10-31 19:08 | Emergency (ER) | payer BC ==
[~2017-10-31] VITALS: Ht 165.1 cm; Wt 68.2 kg
[~2017-10-31 19:08] MED LIST changes: +ADVAIR 250/501 DISK IH; +ALLERGY25 M4 PO; +APRESOLINE25 MG PO; +EFFEXOR XR150 MG PO; +GAS-X125 M1 PO; +INCRUSE ELLI62.5 MCG IH; +LEVSIN-SL0.125 MG SL; +MIRALAX119 GM PO; +NEURONTIN300 MG PO; +ONCE DAILY1 EACH PO; +PRILOSEC20 MG PO; +PROAIR RESPICL90 MCG IH; +TENORMIN25 MG PO; +TRAMADOL HCL E100 M1 PO; +ZYBAN 150 MG T150 MG PO
[2017-10-31 19:33] LABS: BASOPHIL (%) 0.5 % (0-1); BASOPHIL COUNT 0.1 K/uL (0-0.1); EOSINOPHIL (%) 1.4 % (0-5); EOSINOPHIL COUNT 0.2 K/uL (0-0.3); HEMATOCRIT 39.1 % (36.0-46.0); IMMATURE GRANULOCYTE (%) 0.6 % (0.0-0.7); LYMPHOCYTE (%) 38.9 % (15-42); LYMPHOCYTE COUNT 4.7 K/uL (1.0-2.8); MCH 33.1 PG (29.0-34.0); MCHC 35.8 G/DL (30.0-36.0); MCV 92.4 FL (83-99); MONOCYTE (%) 6.6 % (3-12); MONOCYTE COUNT 0.8 K/uL (0-0.8); NEUTROPHIL COUNT 6.3 K/uL (1.8-6.4); PLATELET COUNT 231 K/uL (156-360); RBC DIS.WIDTH-CV 12.2 % (11.8-14.6); RBC DIS.WIDTH-SD 41.1 % (39-53); RED BLOOD COUNT 4.23 M/uL (3.80-5.20)
[2017-10-31 19:54] LABS: ALBUMIN 4.2 g/dL (3.2-4.8)
[2017-10-31 19:55] LABS: CHLORIDE 102 mEq/L (99-109); POTASSIUM 3.4 mEq/L (3.7-5.4); SODIUM 135 mEq/L (136-147)
[2017-10-31 19:57] LABS: GLUCOSE 100 mg/dL (70-99)
[2017-10-31 19:59] LABS: TOTAL BILIRUBIN 0.4 mg/dL (0.0-1.0)
[2017-10-31 20:00] LABS: ALKALINE PHOSPHATASE 73 IU/L (3-129); TROP-I INTERPRETATION NEGATIVE; TROPONIN-I 0.01 ng/mL (0.0-0.30)
[2017-10-31 20:01] LABS: CREATININE 0.7 mg/dL (0.6-1.3); GFR ESTIMATE (CALCULATED) > 59 mL/min/
[2017-10-31 20:02] LABS: AST (GOT) 20 IU/L (2-34); UREA NITROGEN (BUN) 5 mg/dL (9-23)
[2017-10-31 20:03] LABS: ALT (GPT) 16 IU/L (3-49)
[2017-10-31] MEDS ORDERED: PREDNISONE20 MG PO (20:56)
[2017-10-31 22:04] VITALS: BP 129/70
== END 2017-10-31 22:14 | disposition home or self-care (01) ==
LOC: EME → EDBD 19:08 → EME 22:14
PROVIDERS: Emergency Medicine Emergency Medical Services
PROC: 5A12012 Performance of Cardiac Output, Single, Manual (ICD-10-PCS; principal; 2017-10-31)
DX: J44.1 Chronic obstructive pulmonary disease with (acute) exacerbation (principal); J06.9 Acute upper respiratory infection, unspecified; I10 Essential (primary) hypertension; M19.90 Unspecified osteoarthritis, unspecified site; F41.9 Anxiety disorder, unspecified; F32.9 Major depressive disorder, single episode, unspecified; F41.0 Panic disorder [episodic paroxysmal anxiety]; F17.200 Nicotine dependence, unspecified, uncomplicated; Z79.51 Long term (current) use of inhaled steroids; Z79.891 Long term (current) use of opiate analgesic; Z88.5 Allergy status to narcotic agent
CPT/HCPCS: 71045; 80053; 83605; 83880; 84484; 85025; 87040; 93005; 94644; 99281; 99285; J0171; J7040

== ENCOUNTER 2017-11-04 12:47 | Day surgery (SDC) | payer BC ==
[~2017-11-04] VITALS: Ht 165.1 cm; Wt 68.0 kg
== END 2017-11-04 15:00 | disposition home or self-care (01) ==
LOC: PAIN 12:47
DX: M47.816 Spondylosis without myelopathy or radiculopathy, lumbar region (principal); M51.36 Other intervertebral disc degeneration, lumbar region; G89.29 Other chronic pain; F17.200 Nicotine dependence, unspecified, uncomplicated; F32.9 Major depressive disorder, single episode, unspecified; J44.9 Chronic obstructive pulmonary disease, unspecified; K21.9 Gastro-esophageal reflux disease without esophagitis; F10.21 Alcohol dependence, in remission
CPT/HCPCS: J1030; J2250; S0020

== ENCOUNTER 2017-11-11 12:25 | Day surgery (SDC) | payer BC ==
[~2017-11-11] VITALS: Ht 165.1 cm; Wt 70.2 kg
[~2017-11-11 12:25] MED LIST changes: +ASCORBIC ACID500 M3 PO; +FEOSOL325 MG PO; +GAS-X EXTRA ST125 MG PO; +LEVSIN0.125 MG PO; -LISINOPRIL40 MG PO; +MIRALAX17 GM PO; +MULTI-DAY PLUS1 EAC1 PO; -ONCE DAILY1 EACH PO; -PROAIR RESPICL90 MCG IH; -VITAMIN C250 MG PO; +WELLBUTRIN SR150 MG PO; +ZESTRIL20 MG PO; -ZYBAN 150 MG T150 MG PO
== END 2017-11-11 14:20 | disposition home or self-care (01) ==
LOC: PAIN 12:25 → SDC 13:00 → PAIN 14:20
DX: M47.816 Spondylosis without myelopathy or radiculopathy, lumbar region (principal); M51.36 Other intervertebral disc degeneration, lumbar region; F17.200 Nicotine dependence, unspecified, uncomplicated; J44.9 Chronic obstructive pulmonary disease, unspecified; K21.9 Gastro-esophageal reflux disease without esophagitis; F41.9 Anxiety disorder, unspecified; F32.9 Major depressive disorder, single episode, unspecified; G89.29 Other chronic pain; F10.20 Alcohol dependence, uncomplicated
CPT/HCPCS: J1030; J2250; S0020

== ENCOUNTER → 2017-12-25 | Outpatient (CLI) | payer OTHER | END | disposition home or self-care (01) | LOC: RES 09:52 | DX: Z02.71 Encounter for disability determination (principal) | CPT/HCPCS: 94618 ==

== ENCOUNTER 2018-02-03 06:41 | Day surgery (SDC) | payer BC ==
[~2018-02-03] VITALS: Ht 165.1 cm; Wt 74.8 kg
[~2018-02-03 06:41] MED LIST changes: +CELEBREX200 MG PO
== END 2018-02-03 08:55 | disposition home or self-care (01) ==
LOC: PAIN 06:41
DX: M47.816 Spondylosis without myelopathy or radiculopathy, lumbar region (principal); M51.36 Other intervertebral disc degeneration, lumbar region; M48.061 Spinal stenosis, lumbar region without neurogenic claudication; F17.210 Nicotine dependence, cigarettes, uncomplicated; F10.20 Alcohol dependence, uncomplicated; I10 Essential (primary) hypertension; J44.9 Chronic obstructive pulmonary disease, unspecified; Z88.5 Allergy status to narcotic agent; Z88.8 Allergy status to other drugs, medicaments and biological substances
CPT/HCPCS: J1030; J2250; S0020

== ENCOUNTER 2018-03-03 07:29 | Day surgery (SDC) | payer BC ==
[~2018-03-03] VITALS: Ht 165.1 cm; Wt 74.8 kg
== END 2018-03-03 09:51 | disposition home or self-care (01) ==
LOC: PAIN 07:29 → CATH 08:00 → SDC 08:00 → PAIN 09:51
DX: M47.816 Spondylosis without myelopathy or radiculopathy, lumbar region (principal); F17.200 Nicotine dependence, unspecified, uncomplicated; M51.36 Other intervertebral disc degeneration, lumbar region; M48.061 Spinal stenosis, lumbar region without neurogenic claudication; Z88.5 Allergy status to narcotic agent; Z88.8 Allergy status to other drugs, medicaments and biological substances
CPT/HCPCS: J1030; J2250; J3010; S0020